=== PATIENT | female | born 1940 | race Caucasian/White ===

== ENCOUNTER 2018-01-02 18:50 | Inpatient (IN) | payer MEDICARE ==
[~2018-01-02] VITALS: Ht 157.5 cm; Wt 50.0 kg
[2018-01-02 21:57] LABS: BASOPHILS % (AUTO) 0.4 % (0-1); EOSINOPHILS # (AUTO) 0.2 X10'3 (0-0.9); EOSINOPHILS % (AUTO) 2.3 % (0-6); HEMOGLOBIN 11.6 g/dl (12.0-16.0); LYMPHOCYTES # (AUTO) 0.8 X10'3 (1.1-4.8); LYMPHOCYTES % (AUTO) 8.5 % (21-51); MEAN CORPUSCULAR HEMOGLOBIN 35.3 PG (27.0-31.0); MEAN CORPUSCULAR HGB CONC 34.1 % (33.0-36.5); MEAN CORPUSCULAR VOLUME 103.7 FL (78-98); MONOCYTES # (AUTO) 0.6 X10'3 (0-0.9); MONOCYTES % (AUTO) 5.9 % (2-12); NEUTROPHILS # (AUTO) 8.1 X10'3 (1.8-7.7); NEUTROPHILS % (AUTO) 82.9 % (42-75); PLATELET COUNT 359 X10'3 (140-440); RED BLOOD COUNT 3.28 X10'6 (4.20-5.60); RED CELL DISTRIBUTION WIDTH 13.6 % (11.5-14.5); WHITE BLOOD COUNT 9.8 X10'3 (4.5-11.0)
[2018-01-02 22:09] LABS: PARTIAL THROMBOPLASTIN TIME 24 SECONDS (22-32); PROTHROMBIN TIME 10.4 SECONDS (9.0-12.0)
[2018-01-02 22:12] LABS: AMMONIA < 10 UMOL/L (11-32)
[2018-01-02 22:24] LABS: ALANINE AMINOTRANSFERASE 9 U/L (12-78); ALBUMIN 2.3 G/DL (3.4-5.0); ALBUMIN/GLOBULIN RATIO 0.5 (1.1-1.5); ALKALINE PHOSPHATASE 108 IU/L (46-116); ANION GAP 12 (8-16); ASPARTATE AMINO TRANSFERASE 17 U/L (10-37); BILIRUBIN,TOTAL 0.4 MG/DL (0.1-1.0); BLOOD UREA NITROGEN 13 MG/DL (7-18); BUN/CREATININE RATIO 16.5 (6.6-38.0); CALCIUM 8.6 MG/DL (8.5-10.1); CHLORIDE 95 MMOL/L (99-107); CREATINE KINASE 20 U/L (26-192); CREATININE 0.79 MG/DL (0.40-0.90); GLUCOSE 90 MG/DL (70-104); LIPASE 53 U/L (73-393); MAGNESIUM 1.1 MG/DL (1.5-2.4); POTASSIUM 3.3 MMOL/L (3.5-5.1); SODIUM 132 MMOL/L (135-145); TOTAL CARBON DIOXIDE 25.3 MMOL/L (24-32); TOTAL PROTEIN 7.3 G/DL (6.4-8.2); eGFR 71 ML/MIN
[2018-01-02] MEDS ORDERED: magnesium 4gm in 100ml NS 100 ML IV ONE (23:05)
[2018-01-02] MEDS ORDERED: potassium Cl 10 mEq/100mL bag IV ONE (23:05)
[2018-01-02] MEDS ORDERED: potassium Cl 20 mEq SR tablet PO ONE (23:05)
[2018-01-02] MEDS ORDERED: potassium 10mEq/100ml NS w/LIDOcaine (10mg/bag) IV ONE ×2 (23:20→23:45)
[2018-01-02 23:25] LABS: COLOR,URINE YELLOW (Yellow); GLUCOSE, URINE NEGATIVE (Neg); KETONES,URINE NEGATIVE (Neg); LEUKOCYTE ESTERASE ,URINE NEGATIVE (Neg); NITRITES, URINE POSITIVE (Neg); OCCULT BLOOD,URINE NEGATIVE (Neg); PROTEIN,URINE NEGATIVE (Neg); UROBILINOGEN,URINE 0.2 E.U/dL (0.2-1.0)
[2018-01-02 23:32] LABS: CLARITY,URINE SLIGHTLY CLOUDY (Clear); UA COLLECTION TYPE VOIDED
[2018-01-02 23:34] LABS: BACTERIA,URINE 1+ /HPF (Neg); RBC,URINE NONE SEEN /HPF (0-2); SQUAMOUS EPITHELIAL CELL,UR FEW /LPF (FEW); WBC,URINE 0-4 /HPF (0-4)
[2018-01-03] VITALS (16 sets, daily range): BP systolic 98–124; BP diastolic 35–64
[2018-01-03] MEDS ORDERED: morphine 2 MG/ML inj. syringe IV PRN ×2 (00:20)
[2018-01-03] MEDS ORDERED: metoclopramide 5 mg/ml inj IV PRN (00:20)
[2018-01-03] MEDS ORDERED: mag hydrox/Alum hydrox/simeth 30ml oral suspension PO PRN (00:20)
[2018-01-03] MEDS ORDERED: magnesium 1gm/100ml D5W IVPB 100 ML IV PRN (00:20)
[2018-01-03] MEDS ORDERED: HYDROcodone/acetaminophen 5mg/325mg tablet PO PRN (00:20)
[2018-01-03] MEDS ORDERED: magnesium hydroxide 30ml (MOM) UD suspension PO PRN (00:20)
[2018-01-03] MEDS ORDERED: magnesium Cl slow-release 64mg tablet PO PRN (00:20)
[2018-01-03] MEDS ORDERED: diphenhydrAMINE 25mg capsule PO PRN (00:20)
[2018-01-03] MEDS ORDERED: potassium Cl 20 mEq SR tablet PO PRN (00:20)
[2018-01-03] MEDS ORDERED: acetaminophen 650mg rectal suppository RC PRN (00:20)
[2018-01-03] MEDS ORDERED: bisacodyl 10mg suppository rectal RC PRN (00:20)
[2018-01-03] MEDS ORDERED: acetaminophen 325mg tablet PO PRN ×2 (00:20)
[2018-01-03] MEDS ORDERED: magnesium 4gm in 100ml NS 100 ML IV PRN (00:20)
[2018-01-03] MEDS ORDERED: diphenhydrAMINE 50 mg/ml inj IV PRN (00:20)
[2018-01-03] MEDS ORDERED: ondansetron/PF 4mg/2ml inj IV PRN (00:20)
[2018-01-03] MEDS ORDERED: HYDROmorphone 1 mg/ml syringe IV PRN ×2 (00:20)
[2018-01-03 03:37] LABS: HEMOGLOBIN A1C 4.8 % (4.5-6.2)
[2018-01-03 03:51] LABS: PHOSPHORUS 3.5 MG/DL (2.3-4.5)
[2018-01-03 06:28] LABS: POTASSIUM 3.5 MMOL/L (3.5-5.1)
[2018-01-03] MEDS: cephalexin 500mg capsule PO SCH ×3 (07:44→23:33)
[2018-01-03] MEDS: famotidine 20mg tablet PO SCH (07:44)
[2018-01-03] MEDS: docusate sod 100mg capsule PO SCH ×2 (07:44→20:08)
[2018-01-03] MEDS: doxycycline inj 100 MG in normal saline 100ml IV soln 100 ML IV SCH ×2 (07:45→20:46)
[2018-01-03] MEDS: nicotine 21mg patch - 24 hr TD SCH (07:48)
[2018-01-03] MEDS ORDERED: nitrofurantoin macrocrystal 100mg capsule PO SCH (08:00)
[2018-01-03] MEDS ORDERED: heparin, porcine 5000 units/ml vial SQ SCH (08:00)
[2018-01-03] MEDS ORDERED: HYDR-565 PO (11:44)
[2018-01-03] MEDS ORDERED: PSEU-259 PO (11:44)
[2018-01-03] MEDS ORDERED: potassium PO (11:44)
[2018-01-03] MEDS ORDERED: FURO-149 PO (11:44)
[2018-01-03] MEDS ORDERED: midazolam 2 mg/2 ml injection ONE (13:09)
[2018-01-03] MEDS ORDERED: ceFAZolin 1GM/D5W- ADD-VANTAGE 50 ML IV ONE (13:09)
[2018-01-03] MEDS ORDERED: ceFAZolin 1000mg inj ONE (13:10)
[2018-01-03] MEDS ORDERED: fentaNYL/PF 50MCG/1 ML 2ML syringe ONE (13:10)
[2018-01-03] MEDS ORDERED: lidocaine 1%/epinephrine 1:100,000 injection 50ml vial ONE (13:10)
[2018-01-03] MEDS: HYDROcodone/acetaminophen 10/325mg tab PO PRN (16:19)
[2018-01-03] MEDS ORDERED: temazepam 15mg capsule PO PRN (21:00)
[2018-01-04 01:41] VITALS: BP 124/53
[2018-01-04 03:00] VITALS: BP 115/51
[2018-01-04 05:41] VITALS: BP 125/59
[2018-01-04 05:43] LABS: BASOPHILS % (AUTO) 0.2 % (0-1); EOSINOPHILS # (AUTO) 0.2 X10'3 (0-0.9); EOSINOPHILS % (AUTO) 3.2 % (0-6); HEMATOCRIT 28.6 % (35.0-45.0); HEMOGLOBIN 9.7 g/dl (12.0-16.0); LYMPHOCYTES # (AUTO) 0.7 X10'3 (1.1-4.8); LYMPHOCYTES % (AUTO) 11.3 % (21-51); MEAN CORPUSCULAR HEMOGLOBIN 35.1 PG (27.0-31.0); MEAN CORPUSCULAR VOLUME 103.4 FL (78-98); MEAN PLATELET VOLUME 7.5 FL (7.4-10.4); MONOCYTES # (AUTO) 0.5 X10'3 (0-0.9); MONOCYTES % (AUTO) 8.7 % (2-12); NEUTROPHILS # (AUTO) 4.7 X10'3 (1.8-7.7); NEUTROPHILS % (AUTO) 76.6 % (42-75); PLATELET COUNT 335 X10'3 (140-440); RED BLOOD COUNT 2.77 X10'6 (4.20-5.60); WHITE BLOOD COUNT 6.1 X10'3 (4.5-11.0)
[2018-01-04 06:05] LABS: ALANINE AMINOTRANSFERASE 10 U/L (12-78); ALBUMIN 1.8 G/DL (3.4-5.0); ALBUMIN/GLOBULIN RATIO 0.5 (1.1-1.5); ALKALINE PHOSPHATASE 79 IU/L (46-116); ANION GAP 7 (8-16); ASPARTATE AMINO TRANSFERASE 18 U/L (10-37); BILIRUBIN,TOTAL 0.4 MG/DL (0.1-1.0); BLOOD UREA NITROGEN 10 MG/DL (7-18); BUN/CREATININE RATIO 14.9 (6.6-38.0); CALCIUM 7.6 MG/DL (8.5-10.1); CHLORIDE 101 MMOL/L (99-107); CHOL/HDL RATIO 3.5 (0.00-4.99); CHOLESTEROL 106 MG/DL (0-200); CREATININE 0.67 MG/DL (0.40-0.90); GLUCOSE 83 MG/DL (70-104); HDL CHOLESTEROL 30 MG/DL (35-60); LDL CHOLESTEROL 61 MG/DL (50-100); MAGNESIUM 1.7 MG/DL (1.5-2.4); POTASSIUM 3.4 MMOL/L (3.5-5.1); SODIUM 137 MMOL/L (135-145); TOTAL CARBON DIOXIDE 28.7 MMOL/L (24-32); TOTAL PROTEIN 5.8 G/DL (6.4-8.2); TRIGLYCERIDES 93 MG/DL (20-135); eGFR 86 ML/MIN
[2018-01-04 07:00] VITALS: BP 137/56
[2018-01-04] MEDS: docusate sod 100mg capsule PO SCH (08:00)
[2018-01-04] MEDS: famotidine 20mg tablet PO SCH (08:44)
[2018-01-04] MEDS: cephalexin 500mg capsule PO SCH (08:45)
[2018-01-04] MEDS: nicotine 21mg patch - 24 hr TD SCH (08:47)
[2018-01-04] MEDS: HYDROcodone/acetaminophen 10/325mg tab PO PRN ×2 (09:03→14:44)
[2018-01-04] MEDS: doxycycline inj 100 MG in normal saline 100ml IV soln 100 ML IV SCH (09:39)
[2018-01-04] MEDS ORDERED: CEPH500C5 PO (10:40)
[2018-01-04] MEDS ORDERED: NICO-687 TD (10:40)
[2018-01-04 11:00] VITALS: BP 130/62
[2018-01-04 15:00] VITALS: BP 124/61
== END 2018-01-04 16:01 | disposition home health service (06) | DRG 242 ==
LOC: ER 18:51 → ED HOLD 01-03 00:16 → SUR 3N 01-03 01:15 → PCU 3S 01-03 12:30
PROVIDERS: ADMIT Family Medicine; ATTEND Family Medicine
PROC: 0JH606Z Insertion of Pacemaker, Dual Chamber into Chest Subcutaneous Tissue and Fascia, Open Approach (ICD-10-PCS; principal; 2018-01-03)
PROC: 02H63JZ Insertion of Pacemaker Lead into Right Atrium, Percutaneous Approach (ICD-10-PCS; 2018-01-03)
PROC: 02HK3JZ Insertion of Pacemaker Lead into Right Ventricle, Percutaneous Approach (ICD-10-PCS; 2018-01-03)
DX: I44.2 Atrioventricular block, complete (principal); J18.9 Pneumonia, unspecified organism; J44.0 Chronic obstructive pulmonary disease with (acute) lower respiratory infection; N39.0 Urinary tract infection, site not specified; D64.9 Anemia, unspecified; E83.42 Hypomagnesemia; E87.6 Hypokalemia; I08.1 Rheumatic disorders of both mitral and tricuspid valves; F17.210 Nicotine dependence, cigarettes, uncomplicated; K70.31 Alcoholic cirrhosis of liver with ascites; R00.1 Bradycardia, unspecified; R16.0 Hepatomegaly, not elsewhere classified; R63.4 Abnormal weight loss; Z79.899 Other long term (current) drug therapy; Z85.3 Personal history of malignant neoplasm of breast; Z68.20 Body mass index [BMI] 20.0-20.9, adult
CPT/HCPCS: 33208; 36415; 71045; 71250; 80053; 80061; 81001; 82140; 82550; 83036; 83605; 83690; 83735; 83880; 84100; 84132; 84443; 84484; 85025; 85610; 85730; 87040; 87070; 87077; 87088; 87186; 93005; 93306; 94760; 96365; 96368; 99152; 99153; 99285; A4565; A4620; A6222; A6258; C1785; C1898; J0690; J1644; J2250; J2270; J3010; J3475; J3480; J3490; J7030

== ENCOUNTER 2018-08-16 08:25 | Inpatient (IN) | payer MEDICARE | END 2018-08-18 13:15 | disposition home health service (06) | LOC: PAS IN 08:25 → ORTHO 4S 14:30 | PROC: 0SRB0J9 Replacement of Left Hip Joint with Synthetic Substitute, Cemented, Open Approach (ICD-10-PCS; principal; 2018-08-16 11:16) | DX: M16.12 Unilateral primary osteoarthritis, left hip (principal); D64.9 Anemia, unspecified; J43.9 Emphysema, unspecified ==

== ENCOUNTER 2018-09-08 13:53 | Emergency (ER) | payer MEDICARE ==
[~2018-09-08] VITALS: Ht 149.9 cm; Wt 46.4 kg
[~2018-09-08 13:53] MED LIST: ACET-2615 PO; CHOL100046 PO; COU1T PO; HYDR-4383 PO; NAPR220T67 PO
--- NOTE | 2018-09-08 15:51 | NUR ---
vascular at bedside
[2018-09-08 16:05] LABS: CLARITY,URINE CLOUDY (Clear); COLOR,URINE YELLOW (Yellow); GLUCOSE, URINE NEGATIVE (Neg); KETONES,URINE NEGATIVE (Neg); LEUKOCYTE ESTERASE ,URINE SMALL (Neg); NITRITES, URINE POSITIVE (Neg); OCCULT BLOOD,URINE SMALL (Neg); PROTEIN,URINE NEGATIVE (Neg); UROBILINOGEN,URINE 0.2 E.U/dL (0.2-1.0)
[2018-09-08 16:11] VITALS: BP 138/70
[2018-09-08 16:12] LABS: UA COLLECTION TYPE CLN CATCH MIDSTREAM
[2018-09-08 16:13] LABS: BACTERIA,URINE 3+ /HPF (Neg); SQUAMOUS EPITHELIAL CELL,UR MODERATE /LPF (FEW)
[2018-09-08 16:13] LABS: BASOPHILS % (AUTO) 0.3 % (0-1); EOSINOPHILS # (AUTO) 0.1 X10'3 (0-0.9); EOSINOPHILS % (AUTO) 0.9 % (0-6); HEMATOCRIT 36.4 % (35.0-45.0); LYMPHOCYTES # (AUTO) 1.2 X10'3 (1.1-4.8); LYMPHOCYTES % (AUTO) 15.2 % (21-51); MEAN CORPUSCULAR HEMOGLOBIN 29.6 PG (27.0-31.0); MEAN CORPUSCULAR HGB CONC 33.1 g/dL (33.0-36.5); MEAN CORPUSCULAR VOLUME 89.4 FL (78-98); MEAN PLATELET VOLUME 7.9 FL (7.4-10.4); MONOCYTES # (AUTO) 0.7 X10'3 (0-0.9); MONOCYTES % (AUTO) 8.2 % (2-12); NEUTROPHILS # (AUTO) 6.1 X10'3 (1.8-7.7); NEUTROPHILS % (AUTO) 75.4 % (42-75); PLATELET COUNT 294 X10'3 (140-440); RED BLOOD COUNT 4.07 X10'6 (4.20-5.60); RED CELL DISTRIBUTION WIDTH 16.4 % (11.5-14.5); WHITE BLOOD COUNT 8.2 X10'3 (4.5-11.0)
[2018-09-08 16:14] LABS: RBC,URINE 0-2 /HPF (0-2)
[2018-09-08 16:22] LABS: ALANINE AMINOTRANSFERASE 23 U/L (12-78); ALBUMIN 3.1 G/DL (3.4-5.0); ALBUMIN/GLOBULIN RATIO 0.6 (1.1-1.5); ALKALINE PHOSPHATASE 116 IU/L (46-116); ANION GAP 8 (8-16); ASPARTATE AMINO TRANSFERASE 26 U/L (10-37); BILIRUBIN,TOTAL 0.4 MG/DL (0.1-1.0); BLOOD UREA NITROGEN 28 MG/DL (7-18); BUN/CREATININE RATIO 42.4 (6.6-38.0); CALCIUM 10.4 MG/DL (8.5-10.1); CHLORIDE 102 MMOL/L (99-107); CREATININE 0.66 MG/DL (0.40-0.90); POTASSIUM 3.1 MMOL/L (3.5-5.1); SODIUM 139 MMOL/L (135-145); TOTAL CARBON DIOXIDE 28.9 MMOL/L (24-32); TOTAL PROTEIN 8.4 G/DL (6.4-8.2); eGFR 87 ML/MIN
[2018-09-08 16:23] LABS: GLUCOSE 81 MG/DL (70-104)
[2018-09-08] MEDS ORDERED: potassium Cl oral solution 20 MEQ/15 ML PO ONE (16:30)
[2018-09-08] MEDS ORDERED: CEPH-571 PO (16:42)
== END 2018-09-08 17:11 | disposition home or self-care (01) ==
LOC: ER 13:53
DX: M25.552 Pain in left hip (principal); N39.0 Urinary tract infection, site not specified; E87.6 Hypokalemia; R53.1 Weakness; F17.200 Nicotine dependence, unspecified, uncomplicated; Z96.642 Presence of left artificial hip joint; Z90.89 Acquired absence of other organs; Z98.890 Other specified postprocedural states; Z85.3 Personal history of malignant neoplasm of breast; Z79.899 Other long term (current) drug therapy
CPT/HCPCS: 36415; 73502; 80053; 81001; 85025; 85651; 87077; 87088; 87186; 93922; 93926; 99284